=== PATIENT | female | born 1960 | race Caucasian/White ===

== ENCOUNTER 2023-09-03 05:33 | Emergency (ER) | payer OTHER, SELFPAY ==
[2023-09-03 05:33] VITALS: BMI 28.3
--- NOTE | 2023-09-03 06:01 | ED.GENMED ---
History of Present Illness
General
Chief Complaint: Breathing Problem
Source: patient and spouse
Exam Limitations: none
Time Seen by Provider: 09/03/23 05:50
Travel History
Have you had any contact with someone who has COVID-19?: No
Do you have any symptoms of coronavirus? Fever > 100 degrees, chills, cough, shortness of breath, sore throat, loss of taste or smell, muscle aches, or headache?: No
History of Present Illness
History of Present Illness:
63-year-old female complaining of ongoing cough and wheezing since May intermittently. Worse last week. Just finished antibiotics. Was on steroids but they made her too jittery and jumpy. These were stopped. No hemoptysis no pleuritic chest
pain no significant fever. Last night's episode was worse although she is back to baseline cough and wheezing. History of asthma. No workup to date.
Past History
Past History
ED Past Medical History: HTN, Hypercholesterolemia and NIDDM
ED Past Surgical History: and Other (Abdominoplasty)
Social History
Tobacco: Former smoker
Living: with family
Family History
Family History: Hypertension
Review of Systems
Review of Systems
All Other Systems: Not applicable
Constitutional: Denies fever
Respiratory: Denies hemoptysis
Cardiac: Reports no symptoms
ABD/GI: Reports no symptoms
Phy Exam
Physical Exam
Physical Exam:
GENERAL: Alert and oriented in no apparent distress. Recurrent dry hacking cough. Mildly tachypneic with coughing
EYE: Orbits normal.
NECK: Supple
ENT: Pharynx without erythema. No drooling or stridor. Speech normal.
CARDIAC: Tachycardic and regular no murmur
LUNGS: Recurrent dry hacking cough. Mildly tachypneic during coughing. Mild expiratory expiratory wheezing diffusely. Greater on the right
ABDOMEN: Soft, without focal tenderness or distention
NEUROLOGICAL: Alert and oriented , grossly non-focal
SKIN: Warm and dry, no rash or lesion, no discoloration, skin intact.
MUSCULOSKELETAL: No edema,no deformity.Good color
PSYCH: Normal and appropriate interaction.
Scores
Heart Failure Risk
Heart Failure Risk Score: Not Applicable
Course
Orders/Labs/Results
Orders:
Orders
09/03/23 05:58
Cardiac Monitoring- Treatment ONCE
IV Insert/Care/Rem.- Treatment PRN
Albuterol Sulfate [Ventolin Nebules] 7.5 mg INH R NOW STA
Ipratropium/Albuterol Sulfate [Duoneb] 3 ml INHALATION R NOW ONE
Pulse Ox/cont/shift [RESP] Stat
Quantity: 1
09/03/23 05:59
CXR2 [CR Chest - 2 Views ] Urgent
Comment:
Reason For Exam: sob cough
09/03/23 06:34
COVID-19 Antigen Urgent
Source: Nasal Swab
Complete Blood Count/With Diff Urgent
Comprehensive Metabolic Panel Urgent
D-Dimer Urgent
Influenza A+B Rapid Molecular Urgent
BISI Source: Nasal Swab
Specimen Description:
09/03/23 09:06
Electrocardiogram (*1) Urgent
Reason for Study: Chest Pain
EKG- Treatment ONCE
Abnormal Lab Results
09/03/23
06:34
MPV 11.6 H fL
(7.4-10.4)
Eosinophils % 6.3 H %
(0-6)
Glucose 111 H mg/dl
(70-99)
09/03/23 06:34
09/03/23 06:34
Vital Signs
Initial and Last Documented VS:
Initial Vital Signs
Temp Pulse Resp Pulse Ox
99.5 F 125 28 97
09/03/23 05:35 09/03/23 05:35 09/03/23 05:35 09/03/23 05:35
Last Documented Vital Signs
Temp Pulse Resp BP Pulse Ox
98.9 F 75 18 113/58 95
09/03/23 09:28 09/03/23 09:00 09/03/23 09:00 09/03/23 09:00 09/03/23 09:00
MDM/Problems Addressed
Differential Diagnosis Includes:
Recurring cough and wheezing. Likely viral or postviral inflammatory issue. Patient does not tolerate oral steroids well. Workup in progress for more serious etiology given the prolonged symptoms including PE pneumonia pleural effusion etc.
*Radiology
Radiology exam reviewed: preliminary read by ED provider (Negative) and radiology read reviewed (Negative)
*Pulse Oximetry
Patient hypoxic: no
*EKG
Interpreted by ED Provider?: Yes
Interpretation: normal
Comparison EKG: no changes
Heart Rate: 76
Rate: normal
Rhythm: sinus
[place]: normal axis
Interval: normal interval
QRS Pattern: normal QRS
Ischemia: no ischemia
*Critical Care Note
Total Time (30-74mins, 75-104mins- exclusive of procedures): Not Applicable
Update Note
Update Note:
63-year-old female with clear respiratory symptoms. Much improvement after nebulizer. Wheezing significantly improved. Cough improved. Stable vital signs. Pulse ox 96 to 98%. Heart rate normal. Chest x-ray negative. No indication for
antibiotic coverage. Feel she would benefit from inhaled steroids and Singulair. Also will recommend pulmonary follow-up for completeness. She did have some brief chest pain however EKG is stable do not feel this warrants troponin. Clear-cut
respiratory symptoms. Patient is stable for discharge to follow-up
ED Attending Note
-
Portions of this chart may have been created with voice recognition software.� Occasional wrong word or��sound alike� substitutions may have occurred due to the inherent limitations of voice recognition software.
Discharge Plan
Departure
Patient Disposition: Home (Routine Discharge)
Date of Disposition: 09/03/23
Time of Disposition: 09:17
Patient with high blood pressure during this ER visit?: No
Discharge Problem:
Cough/respiratory distress, Persistent bronchitis
Instructions: Shortness of Breath (Dyspnea) (DC), Cough, Adult (DC)
Prescriptions:
New
fluticasone propionate 110 mcg/actuation HFA aerosol inhaler
1 inh inhalation BID Qty: 12 0RF
montelukast [Singulair] 10 mg tablet
10 mg PO DAILY Qty: 30 0RF
albuterol sulfate 2.5 mg /3 mL (0.083 %) solution for nebulization
2.5 mg inhalation Q4H PRN (Reason: shortness of breath or wheezing) Qty: 180 0RF
No Action
rosuvastatin 10 MG tablet
5 mg PO DAILY
lisinopril [Prinivil] 20 MG tablet
20 mg PO DAILY
omeprazole 40 MG capsule,delayed release(DR/EC)
40 mg PO DAILY
lorazepam 1 MG tablet
1 mg PO DAILYPRN PRN (Reason: anxiety)
metformin 500 MG tablet extended release 24 hr
500 mg PO DAILY
escitalopram oxalate 10 MG tablet
10 mg PO HS
cholecalciferol (vitamin D3) [Vitamin D3] 2,000 UNIT capsule
2,000 unit PO HS
Referrals:
Herve Wright MD [Active] - Next open appointment
Eliezer Sanz MD [Family Provider] - Follow up in 2-3 days
Interventions
Interventions:
*Risk Screen - Suicide Last Done: 09/03/23 09:12
*General Assessment Last Done: 09/03/23 09:12
*Neglect/Abuse Screening Last Done: 09/03/23 09:28
ED- Fall Risk Assessment Last Done: 09/03/23 07:19
*ED COVID-19 Vaccine History Last Done: 09/03/23 09:12
*Nursing Disposition Last Done: 09/03/23 09:28
ED- Cardiac Assessment Last Done: 09/03/23 07:19
ED- Pulmonary Assessment Last Done: 09/03/23 07:19
Discharge Date and Time
Discharge Date/Time: 09/03/23 09:29
[2023-09-03 06:17] VITALS: BP 123/67
[2023-09-03] MEDS: VENTOLIN NEBULES 7.5 MG INH (06:18)
[2023-09-03] MEDS: DUONEB 3 ML INHALATION (06:18)
[2023-09-03 06:56] LABS: % Basophils 0.9 % (0-2); % Eosinophils 6.3 % (0-6); % Immature Granulocytes 0.2 % (0-0.5); % Lymphocytes 28.6 % (20.5-51.1); % Monocytes 6.8 % (1.7-9.3); % Neutrophils 57.2 % (42.2-75.2); Absolute Basophils 0.1 10^3/uL (0-0.2); Absolute Eosinophils 0.5 10^3/uL (0-0.7); Absolute Lymphocytes 2.4 10^3/uL (1.2-3.4); Absolute Monocytes 0.6 10^3/uL (0.1-0.6); Absolute Neutrophils 4.9 10^3/uL (1.4-6.5); Hematocrit 41.4 % (37.0-47.0); Hemoglobin 14.2 g/dL (12.0-16.0); Mean Corp Hgb Conc. 34.3 g/dL (33.0-37.0); Mean Corpuscular Hgb 29.8 pg (27.0-31.0); Mean Platelet Volume 11.6 fL (7.4-10.4); Nucleated Red Blood Cells % 0 %; Platelet Count 204 10^3/uL (130-400); Red Blood Cell Count 4.76 10^6/uL (4.20-5.40); Red Cell Dist. Width 12.2 % (11.5-14.5); White Blood Cell Count 8.5 10^3/uL (4.8-10.8)
[2023-09-03 07:00] VITALS: BP 114/56
[2023-09-03 07:09] LABS: ALT (SGPT) 26 U/L (0-35); AST (SGOT) 24 U/L (14-36); Alkaline Phosphatase 67 U/L (38-126); Blood Urea Nitrogen 16 mg/dl (7-17); Carbon Dioxide 26 mmol/L (22-30); Chloride 106 mmol/L (98-107); Estimated Creatinine Clearance 71 ml/min; Glucose 111 mg/dl (70-99); Sodium 136 mmol/L (135-145); Total Bilirubin 0.6 mg/dl (0.2-1.3); Total Protein 6.5 g/dl (6.3-8.2); eGFR > 60.00
[2023-09-03 07:15] LABS: COVID-19 Antigen Negative (Negative)
[2023-09-03 07:27] LABS: Potassium 4.3 mmol/L (3.5-5.1)
[2023-09-03 08:00] VITALS: BP 105/56
[2023-09-03 08:09] LABS: D-Dimer 0.38 ug/mlFEU (0.00-0.50)
[2023-09-03 09:00] VITALS: BP 113/58
== END 2023-09-03 09:29 | disposition home or self-care (01) ==
LOC: EMR 05:33
PROVIDERS: EMERGENCY PHYSICIAN Emergency Medicine; FAMILY PHYSICIAN Family Medicine
DX: R06.03 Acute respiratory distress (principal); J40 Bronchitis, not specified as acute or chronic; R05.9 Cough, unspecified; Z11.52 Encounter for screening for COVID-19; I10 Essential (primary) hypertension; E11.9 Type 2 diabetes mellitus without complications; E78.00 Pure hypercholesterolemia, unspecified; J45.909 Unspecified asthma, uncomplicated; Z87.891 Personal history of nicotine dependence
CPT/HCPCS: 99283; 94640; 94644; 71046; 80053; 85025; 85379; 87502; 87811; 93005

== ENCOUNTER 2023-10-18 05:30 | Inpatient (IN) | payer OTHER, SELFPAY ==
[2023-10-17 19:23] VITALS: BP 138/98
[2023-10-17 19:44] LABS: % Basophils 0.5 % (0-2); % Eosinophils 0.5 % (0-6); % Immature Granulocytes 0.3 % (0-0.5); % Lymphocytes 16.1 % (20.5-51.1); % Monocytes 5.5 % (1.7-9.3); % Neutrophils 77.1 % (42.2-75.2); Absolute Basophils 0.1 10^3/uL (0-0.2); Absolute Eosinophils 0.1 10^3/uL (0-0.7); Absolute Lymphocytes 2.1 10^3/uL (1.2-3.4); Absolute Monocytes 0.7 10^3/uL (0.1-0.6); Hematocrit 42.8 % (37.0-47.0); Hemoglobin 14.6 g/dL (12.0-16.0); Mean Corp Hgb Conc. 34.1 g/dL (33.0-37.0); Mean Corpuscular Hgb 29.6 pg (27.0-31.0); Mean Corpuscular Volume 86.8 fL (81.0-99.0); Mean Platelet Volume 11.6 fL (7.4-10.4); Nucleated Red Blood Cells % 0 %; Platelet Count 179 10^3/uL (130-400); Red Blood Cell Count 4.93 10^6/uL (4.20-5.40); Red Cell Dist. Width 13.2 % (11.5-14.5)
[2023-10-17 19:55] LABS: INR 0.99; PT 12.9 Sec (11.4-14.6)
[2023-10-17 19:56] LABS: APTT 27.9 Sec (23.4-35.0)
[2023-10-17 19:58] LABS: ALT (SGPT) 43 U/L (0-35); AST (SGOT) 31 U/L (14-36); Albumin 4.4 g/dl (3.5-5.0); Alkaline Phosphatase 69 U/L (38-126); Blood Urea Nitrogen 19 mg/dl (7-17); Carbon Dioxide 24 mmol/L (22-30); Chloride 105 mmol/L (98-107); Glucose 103 mg/dl (70-99); Lipase 93 U/L (23-300); Potassium 4.2 mmol/L (3.5-5.1); Sodium 134 mmol/L (135-145); Total Bilirubin 0.6 mg/dl (0.2-1.3); Total Protein 6.9 g/dl (6.3-8.2); eGFR > 60.00
[2023-10-17] MEDS: ZOFRAN 4 MG IV (22:46)
[2023-10-17] MEDS: PEPCID 20 MG IV (22:47)
[2023-10-17] MEDS: NSS 1000 IV (22:47)
--- NOTE | 2023-10-17 22:53 | ED.GENMED ---
History of Present Illness
General
Chief Complaint: Rectal Bleeding
Source: patient
Exam Limitations: none
Time Seen by Provider: 10/17/23 22:30
Travel History
Have you had any contact with someone who has COVID-19?: No
Do you have any symptoms of coronavirus? Fever > 100 degrees, chills, cough, shortness of breath, sore throat, loss of taste or smell, muscle aches, or headache?: No
History of Present Illness
History of Present Illness:
63-year-old female presents complaining of onset of chills abdominal pain diarrhea and vomiting this afternoon. The diarrhea turned into the pure blood. She noticed red blood pouring out of direct earlier tonight. She notes ongoing abdominal
pain. She denies chest pain or shortness of breath. No measurable fever. She is a ysy-lwolbat-whvabgevq diabetic. Treated for hypertension. Recently just finished a 5-week course of prednisone for an asthma exacerbation.
Past History
Past History
ED Past Medical History: HTN, Hypercholesterolemia and NIDDM
ED Past Surgical History: and Other (Abdominoplasty)
Social History
Tobacco: Former smoker
Living: with family
Family History
Family History: Hypertension
Phy Exam
Physical Exam
Physical Exam:
General: Well-appearing female no acute respiratory distress
HEENT: Normocephalic atraumatic
Heart: Regular rate and rhythm no murmurs
Lungs: Clear no wheezing or rales
Abdomen: Soft diffusely tender no guarding rebound normal bowel sounds
Extremities: No cyanosis
Skin: warm, no rashes
Course
Orders/Labs/Results
Orders:
Orders
10/17/23 19:28
Electrocardiogram (*1) Urgent
Reason for Study: Fatigue / Weakness
Cardiac Monitoring- Treatment ONCE
IV Insert/Care/Rem.- Treatment PRN
O2 Therapy [RESP] Urgent
Titrate/Wean O2 to maintain O2 sat greater than (%): 93
Special Instructions: MAINTAIN CONTINOUS O2 SATS > OR = 93%
Pulse Ox/spot Check [RESP] Urgent
Quantity: 1
Special Instructions: ON ROOM AIR
10/17/23 19:29
EKG- Treatment ONCE
10/17/23 19:38
Type+Screen Urgent
Complete Blood Count/With Diff Urgent
Comprehensive Metabolic Panel Urgent
Lipase Urgent
PTT Urgent
Prothrombin Time Urgent
10/17/23 22:40
0.9% Sodium Chloride 1000 ml [Nss] 1,000 ml IV BOLUS
Famotidine [Pepcid] 20 mg IV NOW STA
Ondansetron Injectable [Zofran] 4 mg IV NOW STA
10/17/23 23:47
Acetaminophen [Tylenol] 650 mg PO NOW STA
10/18/23 00:00
CT Abd/pelvis W Iv Cont Urgent
Reason For Exam: abdominal pain, bloody diarrhea
Abnormal Lab Results
10/17/23
19:38
WBC 13.0 H 10^3/uL
(4.8-10.8)
MPV 11.6 H fL
(7.4-10.4)
Absolute Neuts (auto) 10.0 H 10^3/uL
(1.4-6.5)
Absolute Monos (auto) 0.7 H 10^3/uL
(0.1-0.6)
Neutrophils % 77.1 H %
(42.2-75.2)
Lymphocytes % 16.1 L %
(20.5-51.1)
Sodium 134 L mmol/L
(135-145)
BUN 19 H mg/dl
(7-17)
Glucose 103 H mg/dl
(70-99)
ALT 43 H U/L
(0-35)
10/17/23 19:38
10/17/23 19:38
Vital Signs
Initial and Last Documented VS:
Initial Vital Signs
Temp Pulse Resp BP Pulse Ox
98.6 F 78 18 138/98 98
10/17/23 19:23 10/17/23 19:23 10/17/23 19:23 10/17/23 19:23 10/17/23 19:23
Last Documented Vital Signs
Temp Pulse Resp BP Pulse Ox
98.6 F 77 18 156/68 94
10/17/23 19:23 10/18/23 01:00 10/18/23 01:00 10/17/23 23:00 10/18/23 01:00
MDM/Problems Addressed
Differential Diagnosis Includes:
Abdominal pain diarrhea nausea and vomiting. Consider viral illness versus colitis versus electrolyte abnormality versus anemia
Will check labs. Patient is tender on exam. Will order CT scan. Fluids ordered Zofran and Pepcid ordered
*Critical Care Note
Total Time (30-74mins, 75-104mins- exclusive of procedures): Not Applicable
Update Note
Update Note:
CT demonstrates moderate to severe colitis of the distal colon. Patient has not had a bowel movement here. She notes persistent pain. Will admit to hospital for colitis.
ED Attending Note
-
Portions of this chart may have been created with voice recognition software.� Occasional wrong word or��sound alike� substitutions may have occurred due to the inherent limitations of voice recognition software.
Discharge Plan
Departure
Patient Disposition: Admit
Date of Disposition: 10/18/23
Time of Disposition: 03:10
Presentation/result/management discussed w/ accepting MD/DO: Hospitalist
Discharge Problem:
Colitis
Prescriptions:
No Action
rosuvastatin 10 MG tablet
5 mg PO DAILY
lisinopril [Prinivil] 20 MG tablet
20 mg PO DAILY
omeprazole 40 MG capsule,delayed release(DR/EC)
40 mg PO DAILY
lorazepam 1 MG tablet
1 mg PO DAILYPRN PRN (Reason: anxiety)
metformin 500 MG tablet extended release 24 hr
500 mg PO DAILY
escitalopram oxalate 10 MG tablet
10 mg PO HS
cholecalciferol (vitamin D3) [Vitamin D3] 2,000 UNIT capsule
2,000 unit PO HS
fluticasone propionate 110 mcg/actuation HFA aerosol inhaler
1 inh inhalation BID Qty: 12 0RF
montelukast [Singulair] 10 mg tablet
10 mg PO DAILY Qty: 30 0RF
albuterol sulfate 2.5 mg /3 mL (0.083 %) solution for nebulization
2.5 mg inhalation Q4H PRN (Reason: shortness of breath or wheezing) Qty: 180 0RF
Referrals:
Eliezer Sanz MD [Family Provider] -
Interventions
Interventions:
*Risk Screen - Suicide Last Done: 10/17/23 19:23
*General Assessment Last Done: 10/17/23 19:23
*Neglect/Abuse Screening Last Done: 10/17/23 19:23
ED- Fall Risk Assessment Last Done: 10/17/23 19:23
*ED COVID-19 Vaccine History Last Done: 10/17/23 19:23
ON-Xvqurw-Pthgnmtwjr Assessment Last Done: 10/17/23 22:22
ED- Cardiac Assessment Last Done: 10/17/23 22:22
ED- Pulmonary Assessment Last Done: 10/17/23 22:22
[2023-10-17 23:00] VITALS: BP 156/68
[2023-10-17] MEDS: TYLENOL 650 MG PO (23:51)
--- NOTE | 2023-10-18 04:05 | HPS.HSE ---
Family Physician
-
Family Physician: Eliezer Sanz
Chief Complaint
-
vomiting, abdominal pain and two episodes of bloody diarrhea
History of Present Illness
63M recent s/p 5 weeks course of of prednisone for Asthma flare, T2DM pw acute onset of abdominal pain and chills followed by dirrhea and vomiting. Tonight large passge of BRBPR and persisitent colicky abdominal pain.
T 99, associated chills and profuse sweats
Denied recent ABx.
Denied recent travel
Medical History
Past Medical History
Past Medical History: Reports Asthma, HTN, Hypercholesterolemia and NIDDM
Past Surgical History: Reports Other
Additional Past Surgical History:
and Other (Abdominoplasty)
Social History
Tobacco: Former Smoker
Alcohol: None
Living: With Family
Family History
Family History: Not pertinent
Allergies / Home Medications
Allergies reflects when Allergies were last updated in [employer].
Home Medications with original date entered in [employer]
Allergy/Medication List:
Allergies
Allergy/AdvReac Type Severity Reaction Status Date / Time
No Known Allergies Allergy Verified 10/17/23 19:22
Home Medications
rosuvastatin 10 mg tablet 5 mg PO DAILY 01/14/12
cholecalciferol (vitamin D3) 50 mcg (2,000 unit) capsule (Vitamin D3) 2,000 unit PO HS 12/18/16
escitalopram oxalate 10 mg tablet 10 mg PO HS 12/18/16
lisinopril 20 mg tablet (Prinivil) 20 mg PO DAILY 12/18/16
lorazepam 1 mg tablet 1 mg PO DAILYPRN PRN anxiety 12/18/16
metformin 500 mg tablet,extended release 24 hr 500 mg PO DAILY 12/18/16
omeprazole 40 mg capsule,delayed release 40 mg PO DAILY 12/18/16
albuterol sulfate 2.5 mg/3 mL (0.083 %) solution for nebulization 2.5 mg (3 mL) inhalation Q4H PRN shortness of breath or wheezing #180 mL 09/03/23
fluticasone propionate 110 mcg/actuation HFA aerosol inhaler 1 inh inhalation BID #12 grams 09/03/23
montelukast 10 mg tablet (Singulair) 10 mg PO DAILY #30 tabs 09/03/23
Review of Systems
-
Constitutional: Reports No Symptoms
EENT: Reports No Symptoms
Respiratory: Reports No Symptoms
Cardiac: Reports No Symptoms
Abdomen/GI: Reports See HPI, Abdominal Pain, Nausea, Vomiting and Bloody Stools
: Reports No Symptoms
Musculoskeletal: Reports No Symptoms
Skin: Reports No Symptoms
Neurological: Reports No Symptoms
Endocrine: Reports No Symptoms
Hematologic/Lymphatic: Reports No Symptoms
Psych: Reports No Symptoms
Physical Exam
Vital Signs
Vital Signs
Temp Pulse Resp BP Pulse Ox
98.6 F 77 18 156/68 94
10/17/23 19:23 10/18/23 01:00 10/18/23 01:00 10/17/23 23:00 10/18/23 01:00
Physical Exam
General: Well Developed, Well Nourished, No Apparent Distress, Comfortable and Conversant
HEENT: NormoCephalic, Anicteric and Moist mucous membranes
Respiratory: Clear; No Wheezes, Rales or Rhonchi
Cardiac: S1/S2, Regular Rhythm and Murmur (known and f/u with cardiologuist ); No Tachycardia
Breast: Deferred by me
GI: Soft, Non Tender, Non Distended and Normal Bowel Sounds
Musculoskeletal: No Edema
Skin: Warm
Neuro: AO x 3 and No Motor Deficits
Psych: Calm and Intact Judgment/Insight
Laboratory Results
-
10/17/23 19:38
10/17/23 19:38
Laboratory Results
PT 12.9 Sec (11.4-14.6) 10/17/23 19:38
INR 0.99 10/17/23 19:38
APTT 27.9 Sec (23.4-35.0) 10/17/23 19:38
Total Bilirubin 0.6 mg/dl (0.2-1.3) 10/17/23 19:38
AST 31 U/L (14-36) 10/17/23 19:38
ALT 43 U/L (0-35) H 10/17/23 19:38
Alkaline Phosphatase 69 U/L (38-126) 10/17/23 19:38
Lipase 93 U/L (23-300) 10/17/23 19:38
Data Reviewed
-
Diagnostic Radiology: Report Reviewed by me
Lab Data: Labs Reviewed by me
Impression/Plan
-
Data
WCC 13
Hgb 14.6
Na 134
BUN [address] AP w IV contrast
Mod/severe colitis of the descending colon
No free air or abscess
small hiatal hernia
Last hospitalist admission: not since 2011
ASSESSMENT & PLAN
Pending Rx reconciliation
Mod/severe colitis of the descending colon without free air or abscess DDX: Infective, ischemic
Associated hematochezic rectal bleed
Associated fever , chills , N/V/ D
Mild leucocytosis
Current Hgb is 14.6
Hemodynamically stable
- T & S
- Blood consented at ER
- NPO and IVF
- H & H
- Empiric IV Zosyn
- stool for CX, Norovirus and C Diff
- GI consult
NIDM
- add ISS low
Essential HTN
- Held anti HTN for now du to acute LGIB
HLD
- held Statin due to NPO
HX Asthma
S/p recent 5 weeks course of of prednisone
- cont Op INH
DVT Px: SCD
Code: Full
IP MS
[2023-10-18 06:44] VITALS: BP 131/83
[2023-10-18 07:00] VITALS: BP 124/61
[2023-10-18 08:07] VITALS: BP 133/64
--- NOTE | 2023-10-18 09:01 | W.PN.UPDATE ---
Update Note
Progress Note Update
non-billable note
Admitted around 4 AM with vomiting, lower abd pain, bloody diarrhea. Bloody diarrhea persists, pain slightly less but bouts of cramping. CT showed descending colitis, ischemic vs infectious. Stool stamples pending.
Plan: as documented by clinical biostatistician, await stool studies. NPO (ok for ice chips/sips for meds) otherwise IVF. Empiric Zosyn. repeat routine labs Pain control/anti-emetics. GI consultation. 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
--- NOTE | 2023-10-18 10:02 | CON.GI ---
Consultation
-
Date/Time Consultation Requested: 10/18/23 9:30am
Date/Time Consultation Performed: 10/18/23 10:02am
Requesting Provider: Mariajose Martinez
Performing Provider: Aris Hunter
Reason for Consultation: Bloody diarrhea
Medical History
Chief Complaint / HPI
Chief Complaint: Bloody diarrhea
History of Present Illness:
Patient is a 63-year-old female who presents with diarrhea that became bloody starting yesterday around 1 in the afternoon. The day previously she had chicken fajitas for lunch at a [employer] restaurant. She has had associated chills and vomiting
with her symptoms. She had a colonoscopy about a year ago diabetes that she reports was normal.
Past Medical History
Past Medical History: HTN, Hypercholesterolemia and NIDDM
Past Surgical History:
Social History
Tobacco: Former Smoker
Family History
Family History: Reviewed & Not Pertinent
Allergies / Home Medications
Allergy/AdvReac Type Severity Reaction Status Date / Time
No Known Allergies Allergy Verified 10/17/23 19:22
Medication Instructions Recorded
rosuvastatin 10 mg tablet 5 mg PO DAILY 01/14/12
cholecalciferol (vitamin D3) 50 2,000 unit PO HS 12/18/16
mcg (2,000 unit) capsule (Vitamin
D3)
escitalopram oxalate 10 mg tablet 10 mg PO HS 12/18/16
lisinopril 20 mg tablet (Prinivil) 20 mg PO DAILY 12/18/16
omeprazole 40 mg capsule,delayed 20 mg PO DAILY 12/18/16
release
albuterol sulfate 2.5 mg/3 mL 2.5 mg (3 mL) inhalation Q4H PRN 09/03/23
(0.083 %) solution for nebulization shortness of breath or wheezing
#180 mL
montelukast 10 mg tablet 10 mg PO DAILY #30 tabs 09/03/23
(Singulair)
albuterol sulfate 2.5 mg/0.5 mL 2.5 mg inhalation ONCE 10/18/23
solution for nebulization
budesonide 0.5 mg/2 mL suspension 0.5 mg inhalation DAILY 10/18/23
for nebulization
semaglutide 1 mg/dose (2 mg/1.5 1 mg SC QWEEK 10/18/23
mL) subcutaneous pen injector
Review of Systems
-
All other systems: A 12 pt ROS was Negative except as stated above in HPI
Vital Signs
Temp Pulse Resp BP Pulse Ox
98.6 F 71 17 133/64 96
10/17/23 19:23 10/18/23 06:37 10/18/23 06:37 10/18/23 08:07 10/18/23 08:45
Physical Exam
Exam
General: Well Developed, Well Nourished and No Apparent Distress
HEENT: Normocephalic and Atraumatic
Respiratory: Non Labored Respirations
GI: Soft, Non Distended and Tender (LLQ tenderness)
Results
WBC 13.0 10^3/uL (4.8-10.8) H 10/17/23 19:38
Hgb 14.6 g/dL (12.0-16.0) 10/17/23 19:38
Hct 42.8 % (37.0-47.0) 10/17/23 19:38
MCV 86.8 fL (81.0-99.0) 10/17/23 19:38
Plt Count 179 10^3/uL (130-400) 10/17/23 19:38
Absolute Neuts (auto) 10.0 10^3/uL (1.4-6.5) H 10/17/23 19:38
PT 12.9 Sec (11.4-14.6) 10/17/23 19:38
INR 0.99 10/17/23 19:38
APTT 27.9 Sec (23.4-35.0) 10/17/23 19:38
Sodium 134 mmol/L (135-145) L 10/17/23 19:38
Potassium 4.2 mmol/L (3.5-5.1) 10/17/23 19:38
Chloride 105 mmol/L (98-107) 10/17/23 19:38
Carbon Dioxide 24 mmol/L (22-30) 10/17/23 19:38
BUN 19 mg/dl (7-17) H 10/17/23 19:38
Creatinine 0.7 mg/dL (0.6-1.0) 10/17/23 19:38
Calcium 9.0 mg/dl (8.4-10.2) 10/17/23 19:38
Total Bilirubin 0.6 mg/dl (0.2-1.3) 10/17/23 19:38
AST 31 U/L (14-36) 10/17/23 19:38
ALT 43 U/L (0-35) H 10/17/23 19:38
Alkaline Phosphatase 69 U/L (38-126) 10/17/23 19:38
Lipase 93 U/L (23-300) 10/17/23 19:38
Diagnostic Image Results:
Prior GI Procedures:
EGD:
Colonoscopy:
Assessment / Plan
-
Summary: 63yo female presents with 1 day bloody diarrhea, LLQ pain after eating chicken fajitas at [employer] restaurant for lunch day prior. CT shows moderate/severe colitis DC. Had colonoscopy at [facility] about a year ago that was normal.
Impression:
Likely infectious colitis
Bloody diarrhea
Recommendations:
Agree with empiric abx- zosyn ordered
Check stool C diff, culture
Advance diet as symptoms improve
-
-
Thank you for consultation and allowing me to participate in the patient's care. Please call the sales consultant residential manager GI physician during the after hours with any questions or concerns.
[2023-10-18] MEDS: NSS 1000 IV ×2 (10:25→23:41)
[2023-10-18] MEDS: ZOSYN 50 IV ×3 (10:40→22:12)
[2023-10-18] MEDS: VENTOLIN NEBULES 2.5 MG INH ×3 (11:03→23:04)
[2023-10-18] MEDS: TYLENOL 650 MG PO ×3 (11:18→23:41)
[2023-10-18 11:31] LABS: Hemoglobin 13.8 g/dL (12.0-16.0); Mean Corp Hgb Conc. 32.9 g/dL (33.0-37.0); Mean Corpuscular Hgb 29.6 pg (27.0-31.0); Mean Corpuscular Volume 90.1 fL (81.0-99.0); Mean Platelet Volume 11.5 fL (7.4-10.4); Platelet Count 173 10^3/uL (130-400); Red Blood Cell Count 4.66 10^6/uL (4.20-5.40); Red Cell Dist. Width 13.3 % (11.5-14.5)
[2023-10-18 11:52] LABS: Blood Urea Nitrogen 13 mg/dl (7-17); Calcium 8.6 mg/dl (8.4-10.2); Carbon Dioxide 26 mmol/L (22-30); Chloride 106 mmol/L (98-107); Glucose 96 mg/dl (70-99); Sodium 133 mmol/L (135-145); eGFR > 60.00
[2023-10-18 15:36] VITALS: BP 117/60
[2023-10-18 15:37] VITALS: BMI 25.9
[2023-10-18 16:41] LABS: Glucose - Point of Care 73 mg/dl (70-99)
[2023-10-18 16:53] VITALS: BP 107/61; BP 115/59; BP 122/53; PULSE 69; PULSE 71; PULSE 79
[2023-10-18] MEDS: MORPHINE SULFATE 1 MG IV (20:12)
[2023-10-18 21:08] LABS: Glucose - Point of Care 79 mg/dl (70-99)
[2023-10-18] MEDS: LEXAPRO 10 MG PO (22:12)
[2023-10-18 23:20] VITALS: BP 109/59
[2023-10-19] MEDS: ZOSYN 50 IV ×4 (04:25→20:23)
--- NOTE | 2023-10-19 06:36 | W.PN.HOSP.TC ---
Today's Communication/Plan
-
diet as per Gi
cont abx
follow cultures
prn antiemetic
pain control
Assessment / Plan
Assessment / Plan
Physical Exam
General: Well Developed, Well Nourished, Mild distress discomfort
HEENT: NormoCephalic, Anicteric and Moist mucous membranes
Respiratory: Clear; No Wheezes, Rales or Rhonchi
Cardiac: S1/S2, Regular Rhythm and Murmur (known and following with garbage collector driver)
GI: Soft, Non Tender, Non Distended and Normal Bowel Sounds
Musculoskeletal: No Edema
Neuro: AO x 3
Psych: Calm and Intact Judgment/Insight
63F Asthma, HTN, Hypercholesterolemia and NIDDM recent s/p 5 weeks course of of prednisone for Asthma flare, T2DM pw acute onset of abdominal pain and chills followed by� diarrhea and vomiting. Large passage of BRBPR and persisitent colicky
abdominal pain. T 99, associated chills and profuse sweats. Denied recent ABx, travel.
Mod/severe colitis of the descending colon� without free air or abscess � DDX: Infective, ischemic
Associated hematochezic rectal bleed
Associated fever , chills , N/V/ D
Mild leukocytosis
Current Hgb is 14.6
Hemodynamically stable
- IVF completed
- H & H Stable
- Empiric IV Zosyn
- stool for CX, Norovirus and C Diff negative
- GI consult appreciated clear liquid diet advanced to low residue
reported hx NIDDM
-recent A1c appreciated 6.0 prediabetes level
-FS relatively well controlled without need for insulin correction
-ok to discontinue routine FS
Essential HTN
-initial home anti HTN held due to acute LGIB
-home lisinopril since resumed, tolerating well
-home metoprolol remains on hold
HLD
- Statin restarted with advancement diet
HX Asthma
S/p recent 5 weeks course of of prednisone
- cont Op INH
DVT Px: SCD
Code: Full
IP MS
I spent a total of 50 minutes with the patient or on the floor. More than 50% of this time involved counseling and coordination of care.
Anticipated Discharge: Within 24 hours
Subjective/Interval History
-
Date of Service: October 19, 2023
reporting nausea. Later agreeable to attempting low residue diet for dinner. Overall symptomatically improved though not resolved.
Objective Data
-
Labs:
Laboratory Results
10/19/23
05:45
WBC Pending
Hgb Pending
Hct Pending
Plt Count Pending
Sodium Pending
Potassium Pending
Chloride Pending
Carbon Dioxide Pending
BUN Pending
Creatinine Pending
Glucose Pending
Calcium Pending
Total Bilirubin Pending
AST Pending
ALT Pending
Alkaline Phosphatase Pending
Vital Signs:
Vital Signs
Temp Pulse Resp BP Pulse Ox
98.2 F 72 18 109/59 97
10/18/23 23:20 10/18/23 23:20 10/18/23 23:20 10/18/23 23:20 10/19/23 00:40
I&O
10/17/23 10/18/23 10/19/23
06:59 06:59 06:59
Intake Total 2360 / 2360
Balance 2360 / 2360
[2023-10-19 06:53] LABS: % Basophils 0.3 % (0-2); % Immature Granulocytes 0.3 % (0-0.5); % Lymphocytes 19.4 % (20.5-51.1); % Monocytes 6.9 % (1.7-9.3); % Neutrophils 71.1 % (42.2-75.2); Absolute Eosinophils 0.2 10^3/uL (0-0.7); Absolute Lymphocytes 2.3 10^3/uL (1.2-3.4); Absolute Monocytes 0.8 10^3/uL (0.1-0.6); Absolute Neutrophils 8.2 10^3/uL (1.4-6.5); Hematocrit 37.7 % (37.0-47.0); Hemoglobin 12.6 g/dL (12.0-16.0); Mean Corp Hgb Conc. 33.4 g/dL (33.0-37.0); Mean Corpuscular Hgb 29.9 pg (27.0-31.0); Mean Corpuscular Volume 89.5 fL (81.0-99.0); Nucleated Red Blood Cells % 0 %; Platelet Count 146 10^3/uL (130-400); Red Blood Cell Count 4.21 10^6/uL (4.20-5.40); Red Cell Dist. Width 13.1 % (11.5-14.5); White Blood Cell Count 11.6 10^3/uL (4.8-10.8)
[2023-10-19 07:00] VITALS: BP 97/58
[2023-10-19 07:04] LABS: ALT (SGPT) 22 U/L (0-35); AST (SGOT) 22 U/L (14-36); Alkaline Phosphatase 56 U/L (38-126); Blood Urea Nitrogen 8 mg/dl (7-17); Calcium 8.1 mg/dl (8.4-10.2); Carbon Dioxide 27 mmol/L (22-30); Chloride 106 mmol/L (98-107); Estimated Creatinine Clearance 68 ml/min; Glucose 81 mg/dl (70-99); Potassium 3.7 mmol/L (3.5-5.1); Sodium 135 mmol/L (135-145); Total Bilirubin 1.1 mg/dl (0.2-1.3); Total Protein 5.2 g/dl (6.3-8.2); eGFR > 60.00
[2023-10-19] MEDS: PULMICORT 0.5 MG INH (07:29)
[2023-10-19] MEDS: VENTOLIN NEBULES 2.5 MG INH ×2 (07:29→19:42)
[2023-10-19 08:10] LABS: Glucose - Point of Care 97 mg/dl (70-99)
[2023-10-19] MEDS: CRESTOR 5 MG PO (08:36)
[2023-10-19] MEDS: PROTONIX 40 MG PO (08:36)
[2023-10-19] MEDS: SINGULAIR 10 MG PO (08:36)
[2023-10-19] MEDS: ZESTRIL 20 MG PO (08:36)
[2023-10-19 11:35] LABS: Glucose - Point of Care 85 mg/dl (70-99)
[2023-10-19] MEDS: FLUSH (NSS) 2 FLUSH IV (11:54)
[2023-10-19] MEDS: COMPAZINE 5 MG IV (11:54)
[2023-10-19] MEDS: NSS 1000 IV (11:56)
--- NOTE | 2023-10-19 12:48 | W.PN.GI.CBS2 ---
Addendum entered and electronically signed by Aris Hunter MD 10/19/23 13:03:
I saw and examined the patient.
The SECURITY SYSTEMS INSTALLER or PA's note was reviewed and I agree with the note.
Comment: Had nausea with breakfast. No bloody diarrhea
ABD soft mild tender
REC:
Pt agreeable to trying low residue diet for dinner
Cont abx
Slowly improving from likely infectious colitis
Hopefully d/c soon
Original Note:
Today's Communication / Plan
-
Advance as able
Await stool culture
Assessment / Plan
-
Summary: 63yo female presents with 1 day bloody diarrhea, LLQ pain after eating chicken fajitas at [employer] restaurant for lunch day prior. CT shows moderate/severe colitis DC. Had colonoscopy at [facility] about a year ago that was normal. CDiff
negative. Ecoli negative.
Impression:
Likely infectious colitis
Bloody diarrhea
Recommendations:
Agree with empiric abx- zosyn ordered
Await other stool cultures
Advance diet as symptoms improve
Subjective
Subjective
Date of Service: October 19, 2023
Patient without any stool or bloody output since last pm. Some mild nausea with clear liquids this am. She is still having some tenderness, cramping and bloating. Awaiting stool culture. Stool for Ecoli negative. Continues on Zosyn and WBC count
improving.
Objective
Data Reviewed
Laboratory Data:
Laboratory Results
10/19/23 05:45
10/19/23 05:45
Laboratory Results
PT 12.9 Sec (11.4-14.6) 10/17/23 19:38
INR 0.99 10/17/23 19:38
APTT 27.9 Sec (23.4-35.0) 10/17/23 19:38
Total Bilirubin 1.1 mg/dl (0.2-1.3) 03/18/24 05:45
AST 22 U/L (14-36) 10/19/23 05:45
ALT 22 U/L (0-35) 10/19/23 05:45
Alkaline Phosphatase 56 U/L (38-126) 10/19/23 05:45
Lipase 93 U/L (23-300) 10/17/23 19:38
Vital Signs and I&O:
Vital Signs
Temp Pulse Resp BP Pulse Ox
97.8 F 89 16 110/52 95
10/19/23 07:00 10/19/23 08:36 10/19/23 07:35 10/19/23 08:36 10/19/23 11:03
I&O
10/18/23 10/19/23 10/20/23
06:59 06:59 06:59
Intake Total 2360 / 2360
Balance 2360 / 2360
Physical Exam
Physical Exam
HEENT: Anicteric
Cardiology: Normal Sinus Rhythm
Pulmonary: Clear
GI: Soft, Non Distended, Non Tender and Normal Bowel Sounds
Extremities: No Edema
Neuro: Non Focal
--- NOTE | 2023-10-19 12:59 | CM ---
CM met with pt at bedside. Initial assessment completed
Pt lives at listed address with her in 1 floor condo
Independent, drives
Denies DME in home
Denies past HH/SNF
Will have ride at d/c
PCP - Dr Naima Sanz
Pharm - [facility]
Plan - anticipate home no needs
[2023-10-19 15:00] VITALS: BP 114/59
[2023-10-19 16:35] LABS: Glucose - Point of Care 187 mg/dl (70-99)
[2023-10-19] MEDS: LEXAPRO 10 MG PO (20:23)
[2023-10-19] MEDS: TYLENOL 650 MG PO (20:33)
[2023-10-19 21:53] LABS: Glucose - Point of Care 79 mg/dl (70-99)
[2023-10-19 23:50] VITALS: BP 108/60
[2023-10-20] MEDS: ZOSYN 50 IV ×2 (03:37→10:08)
[2023-10-20] MEDS: NSS 1000 IV (03:37)
[2023-10-20 05:42] LABS: Hematocrit 35.5 % (37.0-47.0); Hemoglobin 11.7 g/dL (12.0-16.0); Mean Corpuscular Hgb 29.3 pg (27.0-31.0); Mean Platelet Volume 11.8 fL (7.4-10.4); Platelet Count 128 10^3/uL (130-400); Red Blood Cell Count 3.99 10^6/uL (4.20-5.40); Red Cell Dist. Width 13.1 % (11.5-14.5); White Blood Cell Count 9.5 10^3/uL (4.8-10.8)
[2023-10-20 06:15] LABS: Blood Urea Nitrogen 6 mg/dl (7-17); Calcium 8.2 mg/dl (8.4-10.2); Carbon Dioxide 27 mmol/L (22-30); Chloride 109 mmol/L (98-107); Estimated Creatinine Clearance 68 ml/min; Glucose 86 mg/dl (70-99); Magnesium 1.9 mg/dl (1.6-2.3); Phosphorus 4.3 mg/dl (2.5-4.5); Potassium 3.6 mmol/L (3.5-5.1); Sodium 136 mmol/L (135-145); eGFR > 60.00
[2023-10-20 07:00] VITALS: BP 128/67
[2023-10-20 07:35] LABS: Glucose - Point of Care 82 mg/dl (70-99)
[2023-10-20] MEDS: PULMICORT 0.5 MG INH (07:49)
--- NOTE | 2023-10-20 07:58 | W.PN.HOSP.TC ---
Today's Communication/Plan
-
low residue diet
zosyn converted to oral Augmentin
Possible discharge home tomorrow if patient continues to improve
monitor H&H
Assessment / Plan
Assessment / Plan
Physical Exam
General: Well Developed, Well Nourished, Mild distress discomfort
HEENT: NormoCephalic, Anicteric and Moist mucous membranes
Respiratory: Clear; No Wheezes, Rales or Rhonchi
Cardiac: S1/S2, Regular Rhythm and Murmur (known and following with granulator tender)
GI: Soft, Mild tenderness abd, Non Distended and Normal Bowel Sounds
Musculoskeletal: No Edema
Neuro: AO x 3
Psych: Calm and Intact Judgment/Insight
63F Asthma, HTN, Hypercholesterolemia and NIDDM recent s/p 5 weeks course of of prednisone for Asthma flare, T2DM pw acute onset of abdominal pain and chills followed by� diarrhea and vomiting. Large passage of BRBPR and persisitent colicky
abdominal pain. T 99, associated chills and profuse sweats. Denied recent ABx, travel.
Mod/severe colitis of the descending colon� without free air or abscess � DDX: Infective, ischemic
Associated hematochezic rectal bleed
Associated fever , chills , N/V/ D
Mild leukocytosis
Hemodynamically stable
- IVF completed
- H & H Stable
- Empiric IV Zosyn converted to Augmentin 10/19
- stool for CX, Norovirus and C Diff negative
- GI consult appreciated clear liquid diet advanced to low residue, tolerating
reported hx NIDDM
-recent A1c appreciated 6.0 prediabetes level
-FS relatively well controlled without need for insulin correction
-ok to discontinue routine FS
Essential HTN
-initial home anti HTN held due to acute LGIB
-home lisinopril since resumed, tolerating well
-home metoprolol remains on hold
HLD
- Statin restarted with advancement diet, cont
HX Asthma
S/p recent 5 weeks course of of prednisone
- cont Op INH
DVT Px: SCD
Code: Full
IP MS
Discussed with patient and her Magdiel
I spent a total of 50 minutes with the patient or on the floor. More than 50% of this time involved counseling and coordination of care.
Anticipated Discharge: Within 24 hours
Subjective/Interval History
-
Date of Service: October 20, 2023
Reports overall improvement in symptoms. Tolerating low residue diet. Bowel movements color improving, red color resolving. Abd tenderness improved though not resolved.
Objective Data
-
Labs:
Laboratory Results
10/20/23
05:18
WBC 9.5
Hgb 11.7 L
Hct 35.5 L
Plt Count 128 L
Sodium 136
Potassium 3.6
Chloride 109 H
Carbon Dioxide 27
BUN 6 L
Creatinine 0.7
Glucose 86
Calcium 8.2 L
Vital Signs:
Vital Signs
Temp Pulse Resp BP Pulse Ox
98.2 F 70 16 128/67 98
10/20/23 07:00 10/20/23 07:53 10/20/23 07:53 10/20/23 07:00 10/20/23 07:53
I&O
10/19/23 10/20/23 10/21/23
06:59 06:59 06:59
Intake Total 2359 / 0 1869
Balance 2359 / [id number]
[2023-10-20] MEDS: CRESTOR 5 MG PO (08:47)
[2023-10-20] MEDS: ZESTRIL 20 MG PO (08:47)
[2023-10-20] MEDS: PROTONIX 40 MG PO (08:48)
[2023-10-20] MEDS: SINGULAIR 10 MG PO (08:48)
[2023-10-20] MEDS: TYLENOL 650 MG PO ×2 (08:58→20:51)
[2023-10-20 11:35] LABS: Glucose - Point of Care 97 mg/dl (70-99)
--- NOTE | 2023-10-20 14:38 | W.PN.GI.CBS2 ---
Addendum entered and electronically signed by Karine Hand MD 10/20/23 19:03:
would do total of 7 days abx
Addendum entered and electronically signed by Karine Hand MD 10/20/23 18:35:
I saw and examined the patient.
The TABLE MACHINE OPERATOR or PA's note was reviewed and I agree with the note.
Comment: 63-year-old female with bloody diarrhea and left lower quadrant pain with colitis on CT. Most likely suspect infectious in etiology. Stool studies are negative. She is improving. Having some ongoing bloating, blood is decreasing,
ongoing diarrhea although less. If continues to improve, okay to discharge GI point of view tomorrow. If she worsens, we can consider flex sig. She follows with GI and [place].
Original Note:
Today's Communication / Plan
-
As per plan
Assessment / Plan
-
Summary: 63yo female presents with 1 day bloody diarrhea, LLQ pain after eating chicken fajitas at [employer] restaurant for lunch day prior. CT shows moderate/severe colitis DC. Had colonoscopy at [facility] about a year ago that was normal. CDiff
negative. Ecoli negative.
Impression:
Likely infectious colitis
Bloody diarrhea, improving
Recommendations:
Agree with empiric abx- zosyn ordered
Continue low residue diet
Add FLorastor
Subjective
Subjective
Date of Service: October 20, 2023
Patient on low residue diet. Still with some abdominal tenderness. Had 5 BMs today but slowly improving. Started out bloody but now small amount brown fluffy debris. All stool studies negative. Continues on Zosyn.
Objective
Data Reviewed
Laboratory Data:
Laboratory Results
10/20/23 05:18
10/20/23 05:18
Laboratory Results
PT 12.9 Sec (11.4-14.6) 10/17/23 19:38
INR 0.99 10/17/23 19:38
APTT 27.9 Sec (23.4-35.0) 10/17/23 19:38
Phosphorus 4.3 mg/dl (2.5-4.5) 10/20/23 05:18
Magnesium 1.9 mg/dl (1.6-2.3) 10/20/23 05:18
Total Bilirubin 1.1 mg/dl (0.2-1.3) 10/19/23 05:45
AST 22 U/L (14-36) 10/19/23 05:45
ALT 22 U/L (0-35) 10/19/23 05:45
Alkaline Phosphatase 56 U/L (38-126) 10/19/23 05:45
Lipase 93 U/L (23-300) 10/17/23 19:38
Vital Signs and I&O:
Vital Signs
Temp Pulse Resp BP Pulse Ox
98.2 F 70 16 128/67 98
10/20/23 07:00 10/20/23 08:47 10/20/23 07:53 10/20/23 08:47 10/20/23 07:53
I&O
10/19/23 10/20/23 10/21/23
06:59 06:59 06:59
Intake Total 2359 / 2359
Balance 2359 / 2359
Physical Exam
Physical Exam
HEENT: Anicteric
Cardiology: Normal Sinus Rhythm
Pulmonary: Clear
GI: Soft, Non Distended, Tender (mild diffuse tenderness) and Normal Bowel Sounds
Neuro: Non Focal
[2023-10-20 14:47] VITALS: BP 127/57
[2023-10-20] MEDS: NSS IV (15:49)
[2023-10-20] MEDS: AUGMENTIN 875 MG/125 MG 1 TABLET PO ×2 (16:47→20:54)
[2023-10-20 17:22] LABS: Glucose - Point of Care 92 mg/dl (70-99)
[2023-10-20] MEDS: FLORASTOR 250 MG PO (20:53)
[2023-10-20] MEDS: LEXAPRO 10 MG PO (20:53)
[2023-10-20 21:36] LABS: Glucose - Point of Care 117 mg/dl (70-99)
[2023-10-21 00:09] VITALS: BP 145/66
[2023-10-21] MEDS: VENTOLIN NEBULES 2.5 MG INH (00:17)
[2023-10-21] MEDS: BENADRYL 25 MG PO (00:35)
[2023-10-21 06:04] LABS: Hemoglobin 11.9 g/dL (12.0-16.0); Mean Corpuscular Hgb 30.1 pg (27.0-31.0); Mean Corpuscular Volume 88.6 fL (81.0-99.0); Mean Platelet Volume 11.7 fL (7.4-10.4); Platelet Count 134 10^3/uL (130-400); Red Blood Cell Count 3.95 10^6/uL (4.20-5.40); White Blood Cell Count 5.9 10^3/uL (4.8-10.8)
[2023-10-21 06:26] LABS: Blood Urea Nitrogen 7 mg/dl (7-17); Calcium 8.3 mg/dl (8.4-10.2); Carbon Dioxide 26 mmol/L (22-30); Chloride 110 mmol/L (98-107); Estimated Creatinine Clearance 80 ml/min; Glucose 79 mg/dl (70-99); Magnesium 1.9 mg/dl (1.6-2.3); Phosphorus 4.1 mg/dl (2.5-4.5); Potassium 3.7 mmol/L (3.5-5.1); Sodium 138 mmol/L (135-145); eGFR > 60.00
--- NOTE | 2023-10-21 07:10 | W.PN.HOSP.TC ---
Today's Communication/Plan
-
discharge
Assessment / Plan
Assessment / Plan
Physical Exam
General: Well Developed, Well Nourished, Mild distress discomfort
HEENT: NormoCephalic, Anicteric and Moist mucous membranes
Respiratory: Clear; No Wheezes, Rales or Rhonchi
Cardiac: S1/S2, Regular Rhythm and Murmur (known and following with stunt man)
GI: Soft, Mild tenderness abd, Non Distended and Normal Bowel Sounds
Musculoskeletal: No Edema
Neuro: AO x 3
Psych: Calm and Intact Judgment/Insight
63F Asthma, HTN, Hypercholesterolemia and NIDDM recent s/p 5 weeks course of of prednisone for Asthma flare, T2DM pw acute onset of abdominal pain and chills followed by� diarrhea and vomiting. Large passage of BRBPR and persisitent colicky
abdominal pain. T 99, associated chills and profuse sweats. Denied recent ABx, travel.
Mod/severe colitis of the descending colon� without free air or abscess � DDX: Infective, ischemic
Associated hematochezic rectal bleed
Associated fever , chills , N/V/ D
Mild leukocytosis
Hemodynamically stable
- IVF completed
- H & H Stable
- Empiric IV Zosyn converted to Augmentin 10/19 tolerating well,will continue for 3 more days to complete total 7 days of abx
- stool for CX, Norovirus and C Diff negative
- GI consult appreciated clear liquid diet advanced to low residue, tolerating
reported hx NIDDM
-recent A1c appreciated 6.0 prediabetes level
-FS relatively well controlled without need for insulin correction
-ok to discontinue routine FS
Essential HTN
-initial home anti HTN held due to acute LGIB
-home lisinopril since resumed, tolerating well
-home metoprolol remains on hold
HLD
- Statin restarted with advancement diet, cont
HX Asthma
S/p recent 5 weeks course of of prednisone
- cont Op INH
DVT Px: SCD
Code: Full
IP MS
Medically stable for discharge home with outpatient follow up recommendations.
Total Time Preparing Discharge ___45____ minutes including examination of the patient, summary of the hospital stay, instructions for continuing care to all relevant caregivers; and preparation of discharge records, prescriptions, and referral
forms if necessary.
Anticipated Discharge: Today
Subjective/Interval History
-
Date of Service: October 21, 2023
Seen and examined at bedside in no acute distress. Reports significant improvement in symptoms. Eager to go home.
Objective Data
-
Labs:
Laboratory Results
10/21/23
05:33
WBC 5.9
Hgb 11.9 L
Hct 35.0 L
Plt Count 134
Sodium 138
Potassium 3.7
Chloride 110 H
Carbon Dioxide 26
BUN 7
Creatinine 0.5 L
Glucose 79
Calcium 8.3 L
Vital Signs:
Vital Signs
Temp Pulse Resp BP Pulse Ox
97.4 F 81 18 145/66 98
10/21/23 00:09 10/21/23 00:21 10/21/23 00:21 10/21/23 00:09 10/21/23 00:21
I&O
10/20/23 10/21/23 10/22/23
06:59 06:59 06:59
Intake Total 1869 1170 / 1170
Balance 1869 1170 / 1170
[2023-10-21 07:29] VITALS: BP 141/87
[2023-10-21] MEDS: PULMICORT 0.5 MG INH (07:48)
[2023-10-21] MEDS: PROTONIX 40 MG PO (08:37)
[2023-10-21] MEDS: AUGMENTIN 875 MG/125 MG 1 TABLET PO ×2 (08:37→15:45)
[2023-10-21] MEDS: ZESTRIL 20 MG PO (08:37)
[2023-10-21] MEDS: FLORASTOR 250 MG PO (08:37)
[2023-10-21] MEDS: SINGULAIR 10 MG PO (08:37)
[2023-10-21] MEDS: CRESTOR 5 MG PO (08:37)
--- NOTE | 2023-10-21 12:28 | CM ---
CM following for d/c planning
Met with pt at bedside
May be d/c'ed today
Has ride home when d/c'ed
Plan - anticipate home no needs
--- NOTE | 2023-10-21 14:21 | W.PN.GI.CBS2 ---
Addendum entered and electronically signed by Karine Hand MD 10/21/23 14:57:
I saw and examined the patient.
The BUSINESS DEVELOPMENT AGENT or PA's note was reviewed and I agree with the note.
Comment: 63-year-old female with bloody diarrhea and left lower quadrant pain with colitis on CT.� Most likely suspect infectious in etiology.� Stool studies are negative.� She is improving plan discharge today can follow up prn with Dr. Calvo her
GI doctor.
GI will sign off pls call wtih ?s
Original Note:
Today's Communication / Plan
-
As per plan.
Ok per GI for DC
Assessment / Plan
-
Summary: 63yo female presents with 1 day bloody diarrhea, LLQ pain after eating chicken fajitas at [employer] restaurant for lunch day prior. CT shows moderate/severe colitis DC. Had colonoscopy at [facility] about a year ago that was normal. CDiff
negative. Ecoli negative.
Impression:
Likely infectious colitis
Bloody diarrhea, resolved
Recommendations:
Continue total 7 days abx.
Continue low residue diet
Continue Florastor
Patient to follow up with her Primary GI, .
Subjective
Subjective
Date of Service: October 21, 2023
Patient feeling improved. Stools mushy light brown. Tolerating low residue diet.
Objective
Data Reviewed
Laboratory Data:
Laboratory Results
10/21/23 05:33
10/21/23 05:33
Laboratory Results
PT 12.9 Sec (11.4-14.6) 10/17/23 19:38
INR 0.99 10/17/23 19:38
APTT 27.9 Sec (23.4-35.0) 10/17/23 19:38
Phosphorus 4.1 mg/dl (2.5-4.5) 10/21/23 05:33
Magnesium 1.9 mg/dl (1.6-2.3) 10/21/23 05:33
Total Bilirubin 1.1 mg/dl (0.2-1.3) 10/19/23 05:45
AST 22 U/L (14-36) 10/19/23 05:45
ALT 22 U/L (0-35) 10/19/23 05:45
Alkaline Phosphatase 56 U/L (38-126) 10/19/23 05:45
Lipase 93 U/L (23-300) 10/17/23 19:38
Vital Signs and I&O:
Vital Signs
Temp Pulse Resp BP Pulse Ox
98.4 F 85 16 141/87 99
10/21/23 07:29 10/21/23 07:51 10/21/23 07:51 10/21/23 07:29 10/21/23 07:51
I&O
10/20/23 10/21/23 10/22/23
06:59 06:59 06:59
Intake Total 1869 1170 / 1170
Balance 1869 1170 / 1170
Physical Exam
Physical Exam
HEENT: Anicteric
Cardiology: Normal Sinus Rhythm
Pulmonary: Clear
GI: Soft, Non Distended, Non Tender and Normal Bowel Sounds
Extremities: No Edema
Neuro: Non Focal
[2023-10-21 15:40] VITALS: BP 141/62
--- NOTE | 2023-10-21 16:53 | W.DCSUMMARY ---
Discharge Summary
Discharge Data
Date of Admission: 10/18/23
Date of Discharge: 10/21/23
-
Pending Results: No
Discharge Plan
-
Patient Disposition: Home (Routine Discharge)
Discharge Diagnosis/Procedures: Infectious Colitis
Condition: Fair
Diet: Low Residue
Additional Diets: Cont Low residue diet 1 week then advance as tolerated
Activity: As tolerated
Driving Restrictions: As prior to admission
Bathing Restrictions: None
Blood Work: Repeat CBC and CMP with Primary care provider in 1 week of discharge
Activity Restrictions/Additional Instructions:
Please follow up with your primary care provider in 1 week of discharge and your GI doctor in 2-4 weeks of discharge.
Augmentin has been prescribed for 3 more days to complete 7 days antibiotic treatment infectious colitis. Probiotic has also been prescribed as prophylaxis for healthy gut while on broad spectrum antibiotic. Probiotic is available over the counter
Please take medications as prescribed/recommended and follow up with primary care provider and/or other healthcare provider involved in your care for refills and/or further adjustments to your medication regimen as necessary.
Referrals:
Eliezer Sanz MD [Family Provider] - in one week
Prescriptions:
New
Saccharomyces boulardii 250 mg Capsule
250 mg PO BID 3 Days Qty: 6 0RF
amoxicillin-pot clavulanate 875-125 mg Tablet
1 tab PO TID 3 Days Qty: 9 0RF
Continued
rosuvastatin 10 MG tablet
10 mg PO DAILY
omeprazole 40 MG capsule,delayed release(DR/EC)
20 mg PO DAILY
escitalopram oxalate 10 MG tablet
10 mg PO HS
cholecalciferol (vitamin D3) [Vitamin D3] 2,000 UNIT capsule
2,000 unit PO HS
montelukast [Singulair] 10 mg tablet
10 mg PO DAILY Qty: 30 0RF
albuterol sulfate 2.5 mg /3 mL (0.083 %) solution for nebulization
2.5 mg inhalation Q4H PRN (Reason: shortness of breath or wheezing) Qty: 180 0RF
budesonide 0.5 mg/2 mL Suspension For Nebulization
0.5 mg INHALATION DAILY
Rx Instructions:
pt takes at night
albuterol sulfate 2.5 mg/0.5 mL Solution For Nebulization
2.5 mg INHALATION ONCE
Rx Instructions:
pt takes at night
metoprolol succinate 50 mg Tablet Extended Release 24 Hr
50 mg PO DAILY
lisinopril 20 mg Tablet
20 mg PO HS
cyanocobalamin (vitamin B-12) 1,000 mcg tablet
1,000 mcg PO DAILY
semaglutide 1 mg/dose (4 mg/3 mL) Pen Injector
1 mg SC QWEEK
docusate sodium 50 mg Capsule
50 mg PO BID
Discharge Orders:
Discharge Patient (As Directed); Ordered 10/21/23
Ordered By: Jn Cullen
== END 2023-10-21 18:32 | disposition home or self-care (01) | DRG 392 ==
LOC: 3 WEST ACU 05:30
PROVIDERS: Emergency Medicine; Internal Medicine; ADMITTING PHYSICIAN Internal Medicine; ATTENDING PHYSICIAN Internal Medicine; CONSULT PHYSICIAN Specialist; EMERGENCY PHYSICIAN Emergency Medicine; FAMILY PHYSICIAN Family Medicine
DX: A09 Infectious gastroenteritis and colitis, unspecified (principal); Z87.891 Personal history of nicotine dependence; I10 Essential (primary) hypertension; E78.00 Pure hypercholesterolemia, unspecified
CPT/HCPCS: 74177; 80048; 80053; 82962; 83036; 83690; 83735; 84100; 85025; 85027; 85610; 85730; 86850; 86900; 86901; 87045; 87046; 87324; 87427; 87449; 87798; 93005; 94640; 94760; 96361; 96365; 96375; 99285; Q9967

== ENCOUNTER → 2023-12-01 17:03 | Outpatient (REF) | payer OTHER, SELFPAY ==
[2023-12-01 17:34] LABS: % Basophils 1.4 % (0-2); % Eosinophils 5.1 % (0-6); % Immature Granulocytes 0.3 % (0-0.5); % Lymphocytes 44.5 % (20.5-51.1); % Monocytes 8.2 % (1.7-9.3); % Neutrophils 40.5 % (42.2-75.2); Absolute Basophils 0.1 10^3/uL (0-0.2); Absolute Eosinophils 0.4 10^3/uL (0-0.7); Absolute Lymphocytes 3.2 10^3/uL (1.2-3.4); Absolute Monocytes 0.6 10^3/uL (0.1-0.6); Hematocrit 38.7 % (37.0-47.0); Hemoglobin 13.3 g/dL (12.0-16.0); Mean Corp Hgb Conc. 34.4 g/dL (33.0-37.0); Mean Corpuscular Hgb 30.1 pg (27.0-31.0); Mean Corpuscular Volume 87.6 fL (81.0-99.0); Mean Platelet Volume 11.6 fL (7.4-10.4); Nucleated Red Blood Cells % 0 %; Platelet Count 194 10^3/uL (130-400); Red Blood Cell Count 4.42 10^6/uL (4.20-5.40); Red Cell Dist. Width 12.6 % (11.5-14.5); White Blood Cell Count 7.3 10^3/uL (4.8-10.8)
[2023-12-04 07:14] LABS: Alternaria tenuis <0.10 kU/L (<=0.34); Aspergillus fumigatus <0.10 kU/L (<=0.34); Bermuda Grass <0.10 kU/L (<=0.34); Birch Tree <0.10 kU/L (<=0.34); Box Elder/Maple Tree <0.10 kU/L (<=0.34); Cat Epithelium/Dander <0.10 kU/L (<=0.34); Common Pigweed <0.10 kU/L (<=0.34); Common/Short Ragweed <0.10 kU/L (<=0.34); Cottonwood Tree <0.10 kU/L (<=0.34); Dermatophagoides farinae <0.10 kU/L (<=0.34); Dermatophagoides pteronyssinus <0.10 kU/L (<=0.34); Dog Dander <0.10 kU/L (<=0.34); Elm Tree <0.10 kU/L (<=0.34); German Cockroach <0.10 kU/L (<=0.34); Hormodendrum <0.10 kU/L (<=0.34); IgE 56 kU/L (<=214); Mountain Cedar Tree <0.10 kU/L (<=0.34); Mouse Epithelium <0.10 kU/L (<=0.34); Mucor racemosus <0.10 kU/L (<=0.34); Mugwort Weed <0.10 kU/L (<=0.34); Oak Tree <0.10 kU/L (<=0.34); Penicillium notatum <0.10 kU/L (<=0.34); Sheep Sorrel Weed <0.10 kU/L (<=0.34); Sycamore Tree <0.10 kU/L (<=0.34); Timothy Grass <0.10 kU/L (<=0.34); Walnut Tree <0.10 kU/L (<=0.34); White Ash Tree <0.10 kU/L (<=0.34); White Mulberry Tree <0.10 kU/L (<=0.34)
== END ==
LOC: REG 17:03
PROVIDERS: ATTENDING PHYSICIAN Nurse Practitioner Family; FAMILY PHYSICIAN Family Medicine
DX: J30.2 Other seasonal allergic rhinitis (principal)
CPT/HCPCS: 36415; 82785; 85025; 86003

== ENCOUNTER 2024-05-06 07:39 | Emergency (ER) | payer OTHER, SELFPAY ==
[2024-05-06 07:40] VITALS: BP 134/75
--- NOTE | 2024-05-06 08:00 | ED.GENMED ---
History of Present Illness
General
Chief Complaint: Skin Surface Trauma
Time Seen by Provider: 05/06/24 07:44
History of Present Illness
History of Present Illness:
63-year-old female presents to the emergency department for evaluation of a minor laceration to the distal left thumb sustained when she cut herself with a knife last night. Bleeding is now controlled. Last tetanus unknown
Past History
Past History
ED Past Medical History: HTN, Hypercholesterolemia and NIDDM
ED Past Surgical History: and Other (Abdominoplasty)
Social History
Tobacco: Former smoker
Living: with family
Family History
Family History: Hypertension
Review of Systems
Review of Systems
Allergies reviewed?: Yes
All Other Systems: ROS reviewed and negative except as documented in HPI and ROS
Phy Exam
Physical Exam
Physical Exam:
GEN: Well appearing, NAD, WDWN
HEENT: Oral mucosa moist, no scleral icterus
Cardiac: Regular rate
Lung: No respiratory distress, no tachypnea
MSK: No gross deformity or injuries. 1.5 cm superficial flap laceration to the distal left thumb with no active bleeding
Skin: Good color, no pallor or jaundice, no rashes
Neuro: AO x3, moves all extremities freely
Psych: Calm, cooperative
Course
Orders/Labs/Results
Orders:
Orders
05/06/24 08:20
Tetanus/Diphth/Acelpertussis [Adacel] 0.5 ml IM .ONCE ONE
Vital Signs
Initial and Last Documented VS:
Initial Vital Signs
Temp Pulse Resp BP Pulse Ox
97.9 F 67 18 134/75 99
05/06/24 07:40 05/06/24 07:40 05/06/24 07:40 05/06/24 07:40 05/06/24 07:40
Last Documented Vital Signs
Temp Pulse Resp BP Pulse Ox
97.9 F 67 18 134/75 99
05/06/24 07:40 05/06/24 07:40 05/06/24 07:40 05/06/24 07:40 05/06/24 07:40
MDM/Problems Addressed
MDM/Problems Addressed:
After irrigation I applied a small amount of skin glue for hemostatic purposes, supportive care discussed, tetanus updated
*Critical Care Note
Total Time (30-74mins, 75-104mins- exclusive of procedures): Not Applicable
ED Attending Note
-
Portions of this chart may have been created with voice recognition software.� Occasional wrong word or��sound alike� substitutions may have occurred due to the inherent limitations of voice recognition software.
Discharge Plan
Departure
Patient Disposition: Home (Routine Discharge)
Date of Disposition: 05/06/24
Time of Disposition: 08:21
Patient with high blood pressure during this ER visit?: No
Discharge Problem:
Laceration of left thumb
Instructions: Laceration Repair With Glue (DC)
Prescriptions:
No Action
rosuvastatin 10 MG tablet
10 mg PO DAILY
omeprazole 40 MG capsule,delayed release(DR/EC)
20 mg PO DAILY
escitalopram oxalate 10 MG tablet
10 mg PO HS
cholecalciferol (vitamin D3) [Vitamin D3] 2,000 UNIT capsule
2,000 unit PO HS
montelukast [Singulair] 10 mg tablet
10 mg PO DAILY Qty: 30 0RF
albuterol sulfate 2.5 mg /3 mL (0.083 %) solution for nebulization
2.5 mg inhalation Q4H PRN (Reason: shortness of breath or wheezing) Qty: 180 0RF
budesonide 0.5 mg/2 mL Suspension For Nebulization
0.5 mg INHALATION DAILY
Rx Instructions:
pt takes at night
albuterol sulfate 2.5 mg/0.5 mL Solution For Nebulization
2.5 mg INHALATION ONCE
Rx Instructions:
pt takes at night
metoprolol succinate 50 mg Tablet Extended Release 24 Hr
50 mg PO DAILY
lisinopril 20 mg Tablet
20 mg PO HS
cyanocobalamin (vitamin B-12) 1,000 mcg tablet
1,000 mcg PO DAILY
semaglutide 1 mg/dose (4 mg/3 mL) Pen Injector
1 mg SC QWEEK
docusate sodium 50 mg Capsule
50 mg PO BID
Saccharomyces boulardii 250 mg Capsule
250 mg PO BID 3 Days Qty: 6 0RF
amoxicillin-pot clavulanate 875-125 mg Tablet
1 tab PO TID 3 Days Qty: 9 0RF
Interventions
Interventions:
*Risk Screen - Suicide Last Done: 05/06/24 07:40
*General Assessment Last Done: 05/06/24 07:40
*Neglect/Abuse Screening Last Done: 05/06/24 07:40
ED- Fall Risk Assessment Last Done: 05/06/24 08:45
*ED COVID-19 Vaccine History Last Done: 05/06/24 08:44
*Nursing Disposition Last Done: 05/06/24 08:45
ED-Skin Assessment Last Done: 05/06/24 08:44
Discharge Date and Time
Discharge Date/Time: 05/06/24 08:46
Print Language: SPANISH
[2024-05-06] MEDS: ADACEL 0.5 ML IM (08:41)
== END 2024-05-06 08:46 | disposition home or self-care (01) ==
LOC: EMR 07:39
PROVIDERS: EMERGENCY PHYSICIAN Emergency Medicine; FAMILY PHYSICIAN Family Medicine
DX: S61.012A Laceration without foreign body of left thumb without damage to nail, initial encounter (principal); W26.0XXA Contact with knife, initial encounter; Z23 Encounter for immunization; I10 Essential (primary) hypertension; E78.00 Pure hypercholesterolemia, unspecified; E11.9 Type 2 diabetes mellitus without complications; Z87.891 Personal history of nicotine dependence
CPT/HCPCS: 99282; 90471; 90715